=== PATIENT | male | born 1945 | race Caucasian/White ===

== ENCOUNTER 2019-04-09 06:00 | Day surgery (SDC) | payer MEDICARE, BC ==
[~2019-04-09 06:00] MED LIST: Dextrose 5%-0.45% NaCl 1,000 ML IV SCH; Sodium Chloride 0.9% 10 ML Syringe FLUSH PRN
[2019-04-09] MEDS ORDERED: fentaNYL 100 MCG/2 ML SDV IV ONE ×7 (06:01→07:05)
[2019-04-09] MEDS ORDERED: Midazolam 1 MG/ML 2 ML SDV IV ONE ×7 (06:01→06:58)
[2019-04-09] MEDS ORDERED: Midazolam 1 MG/ML 2 ML SDV ONE (06:11)
[2019-04-09] MEDS ORDERED: fentaNYL 100 MCG/2 ML SDV ONE (06:12)
--- NOTE | 2019-04-09 13:17 | OR ---
DATE: 04/09/2019 PROCEDURES: Total colonoscopy, narrow-band imaging, and cold snare polypectomy. INSTRUMENT USED: CF-TM032M Olympus video colonoscope. PREMEDICATIONS: Fentanyl 200 mcg intravenous, Versed 4 mg intravenous, nasal O2 cannula. The procedure was done under pulse oximetry, BP recording, and sterile supervisor. INDICATION: Screening colonoscopic examination is done for detection of any polypoid lesions and removal, endoscopic hemostasis therapy if needed. DESCRIPTION OF PROCEDURE: Initial rectal exam was unremarkable. Rigid anoscopy was normal. The colonoscope was passed with ease up to the ileocecal area. Photographs were taken of the normal-appearing cecum identified by landmarks of appendiceal orifice and double-bulged ileocecal folds. No bleeding was noted from any of the visualized areas at the commencement of the examination. The bowel preparation was found to be adequate, Ballantine scale 2 in right and transverse colon, 3 in descending colon, total score of 7. No stricture. No vascular ectasia. No large isolated ulcerations seen. No evidence of diffuse inflammatory bowel disease in the form of friability, contact bleeding, or ulcerations. In the proximal ascending colon, 3 mm sized benign-appearing polyp was noted, NBI views were obtained, photographs were taken, cold snare polypectomy was done, the tissue was retrieved and sent for histopathology. Probing the proximal sides of folds and flexures using adequate distention and clearing up the stool material, withdrawal of the scope was made. Cecum to rectum time over 6 minutes. No bleeding was noted from any of the visualized areas at the completion of examination. IMPRESSION: Diminutive ascending colon polyp. The patient tolerated the procedure well. [facility] /[id number]
== END 2019-04-09 09:20 | disposition home or self-care (01) ==
LOC: DL.ENDO 06:00
PROVIDERS: ATTEND Internal Medicine Gastroenterology
DX: Z12.11 Encounter for screening for malignant neoplasm of colon (principal); D12.2 Benign neoplasm of ascending colon; M79.7 Fibromyalgia
CPT/HCPCS: 45385; J2250; J3010; J7042; 88305

== ENCOUNTER 2020-04-07 05:55 | Day surgery (SDC) | payer MEDICARE, BC ==
[~2020-04-07 05:55] MED LIST changes: -Dextrose 5%-0.45% NaCl 1,000 ML IV SCH; +Midazolam 1 MG/ML 2 ML SDV ONE; -Sodium Chloride 0.9% 10 ML Syringe FLUSH PRN; +fentaNYL 100 MCG/2 ML SDV ONE
[2020-04-07] MEDS ORDERED: fentaNYL 100 MCG/2 ML SDV IV ONE ×3 (05:56→08:03)
[2020-04-07] MEDS ORDERED: Midazolam 1 MG/ML 2 ML SDV IV ONE ×3 (05:56→08:04)
[2020-04-07] MEDS ORDERED: Dextrose 5%-0.45% NaCl 1,000 ML IV SCH (06:00)
[2020-04-07] MEDS ORDERED: Sodium Chloride 0.9% 10 ML Syringe FLUSH PRN (06:00)
--- NOTE | 2020-04-07 10:57 | OR ---
DATE: 04/07/2020 PROCEDURES: Esophagogastroduodenoscopy and multiple pinch biopsies. INSTRUMENT USED: [id number]-HQ190 Olympus video panendoscope. PREMEDICATIONS: No oral or topical anesthesia used. Fentanyl 100 mcg intravenous, Versed 2 mg intravenous. The procedure was done under pulse oximetry, BP recording, and wraparound facilitator. INDICATION: The patient with persistent upper abdominal pain, unexplained and not responsive to medical measures, on PPI. Esophagogastroduodenoscopy is performed for detection of any active erosive lesions, [place] esophagus and/or malignancy also under consideration, H pylori status to be determined. Endoscopic hemostasis therapy if needed. PROCEDURE IN DETAIL: The scope was passed with ease. Adequate visualization of the esophagus was made from proximal to distal areas. No upper esophageal lesions identified. No distal esophageal stricture. No uphill or downhill esophageal varices. No Aydee-Bedoya tear. No evidence of erosive esophagitis by Thomas criteria. No esophageal polyp or tumor mass identified. Z-line was seen at around 40 cm distal to the oral verge, configuration consistent with grade 1 by ZAP classification. No proximal gastric varices noted. Gastric fundus examination by retroflexion showed no malignant lesions. No gastric ulcer, malignant mass, or vascular ectasia identified. Duodenal bulb showed no ulcer. Visualized second part of the duodenum is unremarkable. Patchy erythema was noted in the rectum and gastric fundus area. Multiple pinch biopsies were taken from the gastric antrum and proximal body and sent for PyloriTek test for H pylori, and if negative in an hour, the tissue is to be sent for histopathology. Diminutive benign-appearing polyps were noted in the proximal gastric body. No bleeding was noted from any of the visualized areas at the completion of examination. Photographs were taken of the duodenal bulb, gastric antrum, fundus, and distal esophagus. IMPRESSION: Diminutive gastric fundus polyps. The patient tolerated the procedure well. [facility] /[id number]
== END 2020-04-07 10:15 | disposition home or self-care (01) ==
LOC: DL.ENDO 05:55
PROVIDERS: ATTEND Internal Medicine Gastroenterology
DX: K31.7 Polyp of stomach and duodenum (principal); G47.00 Insomnia, unspecified; K57.30 Diverticulosis of large intestine without perforation or abscess without bleeding; Z98.890 Other specified postprocedural states
CPT/HCPCS: 43239; 87077; 88305; 88342; J2250; J3010; J7042

== ENCOUNTER 2024-04-14 08:02 | Day surgery (SDC) | payer MEDICARE, BC ==
[~2024-04-14 08:02] MED LIST changes: +Acetaminophen 325 MG Tab PO PRN; +Acetaminophen/Codeine 300-30 MG Tab PO PRN; -Midazolam 1 MG/ML 2 ML SDV ONE; +Ondansetron 4 MG/2 ML SDV IVPUSH PRN; +Sodium Chloride 0.9% 10 ML Syringe FLUSH PRN; -fentaNYL 100 MCG/2 ML SDV ONE
[2024-04-14] MEDS ORDERED: Sodium Chloride 0.9% 10 ML Syringe IV ONE (08:03)
[2024-04-14] MEDS ORDERED: Midazolam 1 MG/ML 2 ML SDV IV ONE (08:03)
[2024-04-14] MEDS ORDERED: Dexamethasone 4 MG/ML SDV IV ONE (08:03)
[2024-04-14] MEDS: Proparacaine 0.5% Ophth Soln 15 ML Bottle EYELF ONE ×2 (08:24→09:29)
[2024-04-14] MEDS: Povidone-Iodine 5% Sterile Ophth Soln 30 ML Bottle EYELF ONE ×2 (08:25→09:29)
[2024-04-14] MEDS: Moxifloxacin 0.5% Ophth Soln 3 ML Bottle EYELF ONE (08:28)
[2024-04-14] MEDS: Tropicamide 1% Ophth Soln 15 ML Bottle EYELF ONE (08:28)
[2024-04-14] MEDS: Phenylephrine 10% Ophth Soln 5 ML Bot EYELF ONE (08:29)
[2024-04-14] MEDS: Timolol Maleate 0.5% Ophth Soln 5 ML Bottle EYELF ONE (08:30)
[2024-04-14] MEDS: Cataract Ophth Solution EYELF ONE (08:31)
[2024-04-14] MEDS: VANCOmycin 500 MG SDV EYELF ONE (09:29)
[2024-04-14] MEDS: Lidocaine 1% 30 ML SDV ONE (09:29)
[2024-04-14] MEDS: Dexamethasone/Neomycin/Polymyxin B Ophth Oint 3.5 GM Tube EYELF ONE (09:44)
[2024-04-14] MEDS: Diclofenac Sodium 0.1% Ophth Soln 5 ML Bottle EYELF ONE (09:44)
[2024-04-14] MEDS: Apraclonidine 0.5% Ophth Soln 5 ML Bot EYELF ONE (09:44)
== END 2024-04-14 10:20 | disposition home or self-care (01) ==
LOC: DL.SDS 08:02
PROVIDERS: ATTEND Ophthalmology
DX: H26.8 Other specified cataract (principal); I10 Essential (primary) hypertension; K21.9 Gastro-esophageal reflux disease without esophagitis; Z79.899 Other long term (current) drug therapy
CPT/HCPCS: 00142; 66984; 82947; 99100; A9270; J1100; J2250; J3370; V2632; J3490

== ENCOUNTER 2024-04-28 07:57 | Day surgery (SDC) | payer MEDICARE, BC ==
[2024-04-28] MEDS ORDERED: Acetaminophen 325 MG Tab PO PRN (08:00)
[2024-04-28] MEDS ORDERED: Acetaminophen/Codeine 300-30 MG Tab PO PRN (08:00)
[2024-04-28] MEDS ORDERED: Sodium Chloride 0.9% 10 ML Syringe FLUSH PRN (08:00)
[2024-04-28] MEDS ORDERED: Ondansetron 4 MG/2 ML SDV IVPUSH PRN (08:00)
[2024-04-28] MEDS: Proparacaine 0.5% Ophth Soln 15 ML Bottle EYERT ONE ×2 (08:20→09:05)
[2024-04-28] MEDS: Povidone-Iodine 5% Sterile Ophth Soln 30 ML Bottle EYERT ONE ×2 (08:21→09:05)
[2024-04-28] MEDS: Moxifloxacin 0.5% Ophth Soln 3 ML Bottle EYERT ONE (08:23)
[2024-04-28] MEDS: Tropicamide 1% Ophth Soln 15 ML Bottle EYERT ONE (08:25)
[2024-04-28] MEDS: Phenylephrine 10% Ophth Soln 5 ML Bot EYERT ONE (08:26)
[2024-04-28] MEDS: Timolol Maleate 0.5% Ophth Soln 5 ML Bottle EYERT ONE (08:27)
[2024-04-28] MEDS: Cataract Ophth Solution EYERT ONE (08:40)
[2024-04-28] MEDS: Diclofenac Sodium 0.1% Ophth Soln 5 ML Bottle EYERT ONE (09:06)
[2024-04-28] MEDS: Apraclonidine 0.5% Ophth Soln 5 ML Bot EYERT ONE (09:06)
[2024-04-28] MEDS: Dexamethasone/Neomycin/Polymyxin B Ophth Oint 3.5 GM Tube EYERT ONE (09:07)
[2024-04-28] MEDS: VANCOmycin 500 MG SDV EYERT ONE (09:08)
[2024-04-28] MEDS: Lidocaine 1% 30 ML SDV ONE (09:08)
== END 2024-04-28 10:00 | disposition home or self-care (01) ==
LOC: DL.SDS 07:57
PROVIDERS: ATTEND Ophthalmology
DX: H25.811 Combined forms of age-related cataract, right eye (principal); I10 Essential (primary) hypertension; Z79.899 Other long term (current) drug therapy
CPT/HCPCS: 66984; A9270; J3370; J3490

== ENCOUNTER 2024-08-13 21:21 | Emergency (ER) | payer MEDICARE, BC ==
[2024-08-13] MEDS: Fluorescein 1 MG Ophth Strip ONE (22:00)
[2024-08-13] MEDS: Proparacaine 0.5% Ophth Soln 15 ML Bottle ONE (23:10)
== END 2024-08-13 22:30 | disposition home or self-care (01) ==
LOC: DL.ED 21:21
DX: T15.91XA Foreign body on external eye, part unspecified, right eye, initial encounter (principal); I10 Essential (primary) hypertension; Z86.16 Personal history of COVID-19; Z79.899 Other long term (current) drug therapy; W44.8XXA Other foreign body entering into or through a natural orifice, initial encounter; Y93.89 Activity, other specified
CPT/HCPCS: 65205; 99282; 99283-25; J3490